=== PATIENT | female | born 1930 | race Caucasian/White ===

== ENCOUNTER → 2018-01-26 | Outpatient (CLI) | payer MEDICARE ==
--- NOTE | 2018-01-26 10:52 | MM ---
Reason for exam: clinical finding. Last mammogram was performed 6 years ago. History: Patient is postmenopausal and has history of colon cancer at age 61. Physical Findings: Nurse Summary: 2cm nodule in the right breast at 1 o'clock (nurse graciela). MG 3D Diag Mammo W/Cad MESSI Bilateral CC and MLO view(s) were taken. Prior study comparison: January 16, 2012, bilateral digital screening mammo w/CAD. January 13, 2011, bilateral digital screening mammo w/CAD. There are scattered fibroglandular densities. Nodular density at site of clinical concern right upper breast. Ultrasound is recommended. These results were verbally communicated with the patient and result sheet given to the patient on 01/26/18. ASSESSMENT: Incomplete: need additional imaging evaluation, BI-RAD 0 RECOMMENDATION: Ultrasound of the right breast.
--- NOTE | 2018-01-26 10:54 | USB ---
Reason for exam: additional evaluation requested from abnormal screening. History: Patient is postmenopausal and has history of colon cancer at age 61. US Breast Limited RT Right breast ultrasound demonstrates a 0.8 x 0.5 x 0.8cm oval, hypoechoic, vascular lesion at 1 o'clock. These results were verbally communicated with the patient and result sheet given to the patient on 01/26/18. ASSESSMENT: Suspicious, BI-RAD 4 RECOMMENDATION: Ultrasound core biopsy of the right breast. Called Dr. Knox with mammographic findings and has scheduled an appointment for the patient for 02/22/18 at 10:30with Dr. Ann. Biopsy scheduled for 02/05/18 at 2:00. PRELIMINARY REPORT CALLED AND FAXED TO DR. ANN ON 01/26/18.
== END | disposition home or self-care (01) ==
LOC: RADMAMWWP 08:48
PROVIDERS: ATTEND Internal Medicine Hematology & Oncology
DX: N63.11 Unspecified lump in the right breast, upper outer quadrant (principal); R92.8 Other abnormal and inconclusive findings on diagnostic imaging of breast
CPT/HCPCS: 77066; 76642; G0279

== ENCOUNTER → 2018-02-05 | Day surgery (SDC) | payer MEDICARE ==
[2018-02-05 13:04] VITALS: RESP 16; BMI 32.1
--- NOTE | 2018-02-05 14:52 | USB ---
EXAMINATION TYPE: US biopsy breast VAD RT DATE OF EXAM: 02/05/2018 CLINICAL HISTORY: Abnormal mammogram R92.8. Right breast mass for which biopsy was recommended at the 1:00 position. TECHNIQUE: Ultrasound guided core biopsy of the right breast. COMPARISON: 01/26/2018 FINDINGS: The procedure of ultrasound guided core biopsy was explained to the patient. Benefits, alternatives, and risks were discussed. An informed consent was then obtained. Preprocedural timeout was performed. The patient was placed in supine positioning for imaging and for the procedure. The overlying skin was prepped and draped in usual sterile fashion. Lidocaine buffered with bicarbonate was used as anesthetic into the skin and subcutaneous tissue up to the mass at the 1:00 position within the right breast. A abraham was made with surgical scalpel. Under ultrasound guidance, an 18-gauge spinal needle was used to attempt at aspiration in consideration that this could represent an epidermal inclusion cyst, however no fluid was withdrawn. The patient also notes recent antibiotic treatment. Subsequently a 12-gauge vacuum assisted biopsy gun device was used to obtain 5 core samples. Following this, a biopsy clip was left in lesion and was well visualized sonographically within the mass. The patient tolerated the procedure well without any immediate complication. The patient was kept in the radiology department for short stay after the procedure and then discharged home in stable condition. IMPRESSION: Successful, uncomplicated ultrasound guided core biopsy of an 8 mm mass at the 1:00 position within the right breast, full pathology results to follow. Pathology Results: Benign BREAST, RIGHT, 1:00, CORE BIOPSY: BENIGN LYMPH NODE WITH REACTIVE CHANGES AND PARTIAL FAT REPLACEMENT. SEE NOTE. Recommendation Follow up ultrasound of the right breast in 6 months. KHOI
[2018-02-05 14:55] VITALS: BP 167/76; PULSE 72; TEMP 97.5
== END | disposition home or self-care (01) ==
LOC: RADUSWWP 12:45
PROVIDERS: ATTEND Surgery
DX: N63.10 Unspecified lump in the right breast, unspecified quadrant (principal); R92.8 Other abnormal and inconclusive findings on diagnostic imaging of breast; Z88.0 Allergy status to penicillin; Z88.2 Allergy status to sulfonamides; Z88.1 Allergy status to other antibiotic agents
CPT/HCPCS: 88305; 88342; 88341; 19083; A4648; J2001

== ENCOUNTER 2018-04-27 11:22 | Inpatient (IN) | payer MEDICARE ==
--- NOTE | 2018-04-27 11:57 | ED ---
Dizziness HPI - General Chief Complaint: Dizziness Stated Complaint: Dizzy/high blood pressure Time Seen by Provider: 04/27/18 11:40 Source: patient, family, RN notes reviewed Mode of arrival: wheelchair Limitations: no limitations - History of Present Illness Initial Comments: This is a 88-year-old female with no prior history of stroke she states she had the onset last evening of difficulty swallowing and trouble walking. She states she felt dizzy his slight frontal headache and feels fuzzy "". No focal weakness to her arms or legs she states her blood pressure was elevated 197/76. He denies any recent illnesses she does have sciatic nerve problems but does not relate this current problem with the sciatica. No other complaints no other modifying factors at this time. Per her family her speech seems to be normal the patient states she had some slight trouble with speech and was thinking about what she said before she would say it. MD Complaint: lightheadedness, difficulty walking - Related Data Home Medications Medication Instructions Recorded Confirmed Cholecalciferol [Vitamin D3] 1,000 unit PO DAILY 09/25/17 04/27/18 Ferrous Sulfate [Feosol] 325 mg PO Q48H 09/25/17 04/27/18 Losartan/Hydrochlorothiazide 1 tab PO DAILY 09/25/17 04/27/18 [Hyzaar 100-25 Tablet] Multivitamins, Thera [Multivitamin 1 tab PO Q48H 09/25/17 04/27/18 (formulary)] Homer-3 Fatty Acids [Homer-3] 1,000 mg PO DAILY 01/29/18 04/27/18 Cetirizine HCl [Zyrtec] 10 mg PO DAILY 04/27/18 04/27/18 Allergies Allergy/AdvReac Type Severity Reaction Status Date / Time clarithromycin [From Biaxin] Allergy Rash/Hives Verified 04/27/18 12:11 Penicillins Allergy Unknown Verified 04/27/18 12:11 Sulfa (Sulfonamide Allergy ringing in Verified 04/27/18 12:11 Antibiotics) ears Review of Systems ROS Statement: Those systems with pertinent positive or pertinent negative responses have been documented in the HPI. ROS Other: All systems not noted in ROS Statement are negative. Past Medical History Past Medical History: Cancer, Hypertension Additional Past Medical History / Comment(s): anemia, hx colon cancer, lymphedema right arm History of Any Multi-Drug Resistant Organisms: None Reported Past Surgical History: Bowel Resection, Joint Replacement Additional Past Surgical History / Comment(s): joellen knee replacements, joellen cataract with lens implants Past Anesthesia/Blood Transfusion Reactions: No Reported Reaction Past Psychological History: No Psychological Hx Reported Smoking Status: Never smoker Past Alcohol Use History: None Reported Past Drug Use History: None Reported - Past Family History Mother Family Medical History: Cancer Additional Family Medical History / Comment(s): colon General Exam - General Exam Comments Initial Comments: This is a well-developed well-nourished awake alert oriented 3 female Limitations: no limitations General appearance: alert, in no apparent distress Head exam: Present: atraumatic, normocephalic, normal inspection Eye exam: Present: normal appearance, PERRL, EOMI. Absent: scleral icterus, conjunctival injection, periorbital swelling ENT exam: Present: mucous membranes dry Neck exam: Present: normal inspection. Absent: tenderness, meningismus, lymphadenopathy Respiratory exam: Present: normal lung sounds bilaterally. Absent: respiratory distress, wheezes, rales, rhonchi, stridor Cardiovascular Exam: Present: regular rate, normal rhythm, normal heart sounds. Absent: systolic murmur, diastolic murmur, rubs, gallop, clicks GI/Abdominal exam: Present: soft, normal bowel sounds. Absent: distended, tenderness, guarding, rebound, rigid Extremities exam: Present: normal inspection, full ROM, normal capillary refill. Absent: tenderness, pedal edema, joint swelling, calf tenderness Back exam: Present: normal inspection Neurological exam: Present: alert, oriented X3, CN II-XII intact Psychiatric exam: Present: normal affect, normal mood Skin exam: Present: warm, dry, intact, normal color. Absent: rash Course Vital Signs 04/27/18 04/27/18 11:31 14:34 Temperature 98.4 F Pulse Rate 75 78 Respiratory 18 18 Rate Blood Pressure 193/78 185/81 O2 Sat by Pulse 99 98 Oximetry - Reevaluation(s) Reevaluation #1: 04/27/18 15:12 Reevaluation patient reveals no change in her status she still is difficulty swallowing was able ambulate however. No focal deficits. EKG Findings - EKG Results: EKG: interpreted by REUBEN, sinus rhythm (Sinus rhythm of 62 NJ interval 150 QRS 138 QT since QTC 442/448 red bundle-branch block pattern possible lateral infarct of indeterminate age.) Medical Decision Making - Medical Decision Making I did discuss findings with the patient family and with Dr. Collins patient will be admitted with ENT and neurology evaluation. - Lab Data Result diagrams: 04/27/18 12:06 04/27/18 12:06 Lab Results 04/27/18 04/27/18 04/27/18 Range/Units 12:06 12:06 12:06 WBC 6.5 (3.8-10.6) k/uL RBC 4.21 (3.80-5.40) m/uL Hgb 12.5 (11.4-16.0) gm/dL Hct 36.9 (34.0-46.0) % MCV 87.7 (80.0-100.0) fL MCH 29.7 (25.0-35.0) pg MCHC 33.9 (31.0-37.0) g/dL RDW 12.7 (11.5-15.5) % Plt Count 317 (150-450) k/uL Neutrophils % 70 % Lymphocytes % 18 % Monocytes % 7 % Eosinophils % 3 % Basophils % 0 % Neutrophils # 4.5 (1.3-7.7) k/uL Lymphocytes # 1.1 (1.0-4.8) k/uL Monocytes # 0.4 (0-1.0) k/uL Eosinophils # 0.2 (0-0.7) k/uL Basophils # 0.0 (0-0.2) k/uL D-Dimer (<0.60) mg/L FEU Sodium 142 (137-145) mmol/L Potassium 4.5 (3.5-5.1) mmol/L Chloride 106 (98-107) mmol/L Carbon Dioxide 25 (22-30) mmol/L Anion Gap 11 mmol/L BUN 25 H (7-17) mg/dL Creatinine 0.90 (0.52-1.04) mg/dL Est GFR (CKD-EPI)AfAm 67 (>60 ml/min/1.73 sqM) Est GFR (CKD-EPI)NonAf 58 (>60 ml/min/1.73 sqM) Glucose 93 (74-99) mg/dL Calcium 9.5 (8.4-10.2) mg/dL Magnesium 2.2 (1.6-2.3) mg/dL Total Bilirubin 0.3 (0.2-1.3) mg/dL AST 18 (14-36) U/L ALT 19 (9-52) U/L Alkaline Phosphatase 90 (38-126) U/L Total Creatine Kinase 43 (30-135) U/L CK-MB (CK-2) 1.0 (0.0-2.4) ng/mL CK-MB (CK-2) Rel Index 2.3 Troponin I <0.012 (0.000-0.034) ng/mL Total Protein 7.5 (6.3-8.2) g/dL Albumin 4.0 (3.5-5.0) g/dL Urine Color Urine Appearance (Clear) Urine pH (5.0-8.0) Ur Specific [place] (1.001-1.035) Urine Protein (Negative) Urine Glucose (UA) (Negative) Urine Ketones (Negative) Urine Blood (Negative) Urine Nitrite (Negative) Urine Bilirubin (Negative) Urine Urobilinogen (<2.0) mg/dL Ur Leukocyte Esterase (Negative) 04/27/18 04/27/18 Range/Units 12:06 14:36 WBC (3.8-10.6) k/uL RBC (3.80-5.40) m/uL Hgb (11.4-16.0) gm/dL Hct (34.0-46.0) % MCV (80.0-100.0) fL MCH (25.0-35.0) pg MCHC (31.0-37.0) g/dL RDW (11.5-15.5) % Plt Count (150-450) k/uL Neutrophils % % Lymphocytes % % Monocytes % % Eosinophils % % Basophils % % Neutrophils # (1.3-7.7) k/uL Lymphocytes # (1.0-4.8) k/uL Monocytes # (0-1.0) k/uL Eosinophils # (0-0.7) k/uL Basophils # (0-0.2) k/uL D-Dimer 0.65 H (<0.60) mg/L FEU Sodium (137-145) mmol/L Potassium (3.5-5.1) mmol/L Chloride (98-107) mmol/L Carbon Dioxide (22-30) mmol/L Anion Gap mmol/L BUN (7-17) mg/dL Creatinine (0.52-1.04) mg/dL Est GFR (CKD-EPI)AfAm (>60 ml/min/1.73 sqM) Est GFR (CKD-EPI)NonAf (>60 ml/min/1.73 sqM) Glucose (74-99) mg/dL Calcium (8.4-10.2) mg/dL Magnesium (1.6-2.3) mg/dL Total Bilirubin (0.2-1.3) mg/dL AST (14-36) U/L ALT (9-52) U/L Alkaline Phosphatase (38-126) U/L Total Creatine Kinase (30-135) U/L CK-MB (CK-2) (0.0-2.4) ng/mL CK-MB (CK-2) Rel Index Troponin I (0.000-0.034) ng/mL Total Protein (6.3-8.2) g/dL Albumin (3.5-5.0) g/dL Urine Color Colorless Urine Appearance Clear (Clear) Urine pH 7.5 (5.0-8.0) Ur Specific [place] 1.006 (1.001-1.035) Urine Protein Negative (Negative) Urine Glucose (UA) Negative (Negative) Urine Ketones Negative (Negative) Urine Blood Negative (Negative) Urine Nitrite Negative (Negative) Urine Bilirubin Negative (Negative) Urine Urobilinogen <2.0 (<2.0) mg/dL Ur Leukocyte Esterase Negative (Negative) - Radiology Data Radiology results: report reviewed (I did review the imaging and reports no acute findings.), image reviewed Critical Care Time Critical Care Time: Yes Critical Care Time: 31 minutes of critical care time which includes initial presentation with history physical labs x-rays several reevaluation of the patient. Discussed with the patient family regarding findings review of old charting that was available. Discussed with the beta physician admission orders and documentation of the above Disposition Clinical Impression: CVA (cerebral vascular accident) Disposition: ADMITTED IP TO THIS [facility] Condition: Stable Referrals: Russ Rowe MD [Primary Care Provider] - 1-2 days
[2018-04-27 12:49] LABS: Basophils % (A) 0 %; Eosinophils # (A) 0.2 k/uL (0-0.7); Eosinophils % (A) 3 %; HCT 36.9 % (34.0-46.0); HGB 12.5 gm/dL (11.4-16.0); Lymphocytes # (A) 1.1 k/uL (1.0-4.8); Lymphocytes % (A) 18 %; MCH 29.7 pg (25.0-35.0); MCHC 33.9 g/dL (31.0-37.0); MCV 87.7 fL (80.0-100.0); Monocytes # (A) 0.4 k/uL (0-1.0); Monocytes % (A) 7 %; Neutrophils # (A) 4.5 k/uL (1.3-7.7); Neutrophils % (A) 70 %; Platelet Count 317 k/uL (150-450); RBC 4.21 m/uL (3.80-5.40); RDW 12.7 % (11.5-15.5); WBC 6.5 k/uL (3.8-10.6)
[2018-04-27 13:11] LABS: Calcium 9.5 mg/dL (8.4-10.2); Creatine Kinase 43 U/L (30-135); Magnesium 2.2 mg/dL (1.6-2.3); Total Bilirubin 0.3 mg/dL (0.2-1.3); Total Protein 7.5 g/dL (6.3-8.2)
[2018-04-27 13:13] LABS: Potassium 4.5 mmol/L (3.5-5.1)
--- NOTE | 2018-04-27 13:14 | CT ---
EXAMINATION TYPE: CT brain wo con DATE OF EXAM: 04/27/2018 COMPARISON: HISTORY: Dizzy, elevated blood pressure CT DLP: [address] of the brain was performed. The ventricles, basal cisterns and sulci overlying the cerebral convexities demonstrate mild enlargem ent. There is no evidence for intracranial hemorrhage or sulcal effacement. There is decreased attenuation about the periventricular white matter and deep white matter of both c erebral hemispheres, compatible with chronic small vessel ischemia. Differential diagnosis does inclu de demyelination. No mass effects are seen.No midline shift. Osseous calvarium is intact. If symptoms persist consider MRI. IMPRESSION: 1. Age related atrophic and chronic small vessel ischemic change without acute intracranial process s een at this time.
--- NOTE | 2018-04-27 13:16 | XR ---
EXAMINATION TYPE: XR chest 2V DATE OF EXAM: 04/27/2018 COMPARISON: 07/02/2014 HISTORY: Shortness of breath TECHNIQUE: Frontal and lateral views of the chest are obtained. FINDINGS: Scattered senescent parenchymal changes noted. Hyperinflation compatible with COPD. No evidence for infiltrate. No evidence for atelectasis. Heart size is stable. Mediastinal structures are stable and grossly unremarkable. No evidence for hilar prominence. Degenerative changes dorsal spine. IMPRESSION: 1. No evidence for acute pulmonary disease.
[2018-04-27 13:23] LABS: Troponin I <0.012 ng/mL (0.000-0.034)
[2018-04-27] MEDS ORDERED: SODIUM CHLORIDE 0.9% 500 ML IV STA ×2 (14:45→16:31)
[2018-04-27 14:53] LABS: Appearance,Urine Clear (Clear); Bilirubin,Urine Negative (Negative); Blood,Urine Negative (Negative); Color,Urine Colorless; Glucose,Urine (UA) Negative (Negative); Ketones,Urine Negative (Negative); Leukocyte Esterase,Urine Negative (Negative); Nitrite,Urine Negative (Negative); PH, Urine 7.5 (5.0-8.0); Protein,Urine Negative (Negative); Specific Gravity,Urine 1.006 (1.001-1.035); Urobilinogen,Urine <2.0 mg/dL (<2.0)
[2018-04-27] MEDS ORDERED: SODIUM CHLORIDE 0.9% 1,000 ML IV SCH (15:15)
[2018-04-27] MEDS ORDERED: cloNIDine HCL 0.1 MG TAB PO STA (15:23)
[2018-04-27] MEDS: ASPIRIN 325 MG TAB PO STA ×2 (15:27→15:28)
[2018-04-27 18:47] VITALS: BMI 31.7
--- NOTE | 2018-04-27 20:06 | P.CNNES ---
History of Present Illness Consult date: 04/27/18 Reason for Consult: Patient with altered mental status and dizziness. History of Present Illness: This patient is a 88-year-old right-handed white female who apparently yesterday evening noticed that she was having some difficulty with her sense of balance. She states that she is feeling "woozy" which meant she was just not feeling well. She also noted yesterday evening that she was having difficulty with her swallowing mechanism as when she tried to drink of fluid it was causing her to cough and gag. She decided to wait until this morning to see if her symptoms would improve. This morning she was still having trouble with her swallowing mechanism stating that it was hard for her to drink liquids. Later on in the day she was able to have some toast which apparently did not cause trouble. She still continued to have symptoms of dizziness. She describes it as a feeling of imbalance. She did not have any true vertigo symptoms at the time. She was also feeling that she was having trouble walking but attributed much of this to her known history of sciatica in the past. The patient decided to come to the emergency room today for further evaluation. She was seen in the ER by Dr. Saldana. Her initial blood pressure reading in the ER was 193/78 which was quite elevated and she was treated for this. The patient was reevaluated in the ER by Dr. Saldana and she still had difficulty with swallowing. She was admitted to hospital for further evaluation. ENT consultation is pending. Patient denies any previous history of TIA or stroke. She does have history of underlying colon cancer which was diagnosed in 1990. She underwent resection with chemotherapy. She has yearly colonoscopy procedures. She also has a history of bilateral knee surgeries in 2009. She states she had been ambulating well but this new weakness came on suddenly. The patient did undergo a computed tomography scan of the brain in the ER which revealed age related atrophy and chronic small vessel ischemic changes. No acute intracranial abnormality was detected. We reviewed the CAT scan results today with the patient. We'll recommend patient undergo MRI of the brain to rule out any brainstem ischemia. We will need to wait to see how she her ENT evaluation turns out in terms of her swallowing difficulties. She does have a gag reflex and does seem to do well with liquids and soft foods at this time without showing signs of gagging. She may require speech therapy consultation as well. The patient is unable to take aspirin as she has a high bleeding tendency. She is now been admitted and neurology has been consulted for further evaluation and recommendations. Review of Systems Constitutional: Denies chills, Denies fever Eyes: denies blurred vision, denies pain Ears, nose, mouth and throat: Denies headache, Denies sore throat Cardiovascular: Denies chest pain, Denies shortness of breath Respiratory: Denies cough Gastrointestinal: Denies abdominal pain, Denies diarrhea, Denies nausea, Denies vomiting Genitourinary: Denies dysuria, Denies hematuria Musculoskeletal: Denies myalgias Integumentary: Denies pruritus, Denies rash Neurological: Reports change in mentation, Reports confusion, Reports gait dysfunction, Reports motor disturbance, Denies numbness, Denies weakness Psychiatric: Denies anxiety, Denies depression Endocrine: Denies fatigue, Denies weight change Past Medical History Past Medical History: Cancer, Hypertension Additional Past Medical History / Comment(s): anemia, hx colon cancer, lymphedema right arm History of Any Multi-Drug Resistant Organisms: None Reported Past Surgical History: Bowel Resection, Joint Replacement Additional Past Surgical History / Comment(s): joellen knee replacements, joellen cataract with lens implants Past Anesthesia/Blood Transfusion Reactions: No Reported Reaction Past Psychological History: No Psychological Hx Reported Smoking Status: Never smoker Past Alcohol Use History: None Reported Past Drug Use History: None Reported - Past Family History Mother Family Medical History: Cancer Additional Family Medical History / Comment(s): colon Medications and Allergies Home Medications Medication Instructions Recorded Confirmed Type Cholecalciferol [Vitamin D3] 1,000 unit PO DAILY 09/25/17 04/27/18 History Ferrous Sulfate [Feosol] 325 mg PO Q48H 09/25/17 04/27/18 History Losartan/Hydrochlorothiazide 1 tab PO DAILY 09/25/17 04/27/18 History [Hyzaar 100-25 Tablet] Multivitamins, Thera [Multivitamin 1 tab PO Q48H 09/25/17 04/27/18 History (formulary)] Chemult-3 Fatty Acids [Chemult-3] 1,000 mg PO DAILY 01/29/18 04/27/18 History Cetirizine HCl [Zyrtec] 10 mg PO DAILY 04/27/18 04/27/18 History Allergies Allergy/AdvReac Type Severity Reaction Status Date / Time clarithromycin [From Biaxin] Allergy Rash/Hives Verified 04/27/18 12:11 Penicillins Allergy Unknown Verified 04/27/18 12:11 Sulfa (Sulfonamide Allergy ringing in Verified 04/27/18 12:11 Antibiotics) ears Physical Examination - Vital Signs Vital Signs: Vital Signs Temp Pulse Pulse Resp BP BP Pulse Ox 04/27/18 17:52 97.3 F L 56 L 18 184/73 97 04/27/18 16:15 73 18 184/72 97 04/27/18 16:10 71 16 192/79 98 04/27/18 15:32 78 18 199/76 97 04/27/18 14:34 78 18 185/81 98 04/27/18 11:31 98.4 F 75 18 193/78 99 Intake and Output 04/27/18 04/27/18 04/27/18 06:59 14:59 22:59 Other: Weight 78.653 kg - Constitutional General appearance: average body habitus, cooperative - EENT EENT: PERRL, mucous membranes moist - Respiratory Respiratory: lungs clear, normal breath sounds - Cardiovascular Cardiovascular: regular rate, normal S1, normal S2 Extremities: no peripheral edema bilaterally - Gastrointestinal Gastrointestinal: normoactive bowel sounds - Integumentary Integumentary: normal - Neurologic Cranial nerve examination: PERRL, EOMI, VFF, face symmetric, intact gag reflex, intact corneal reflex, normal palatal elevation Speech examination: intact Sensorimotor examination: intact Motor examination - right side: 4/5: biceps, triceps, wrist flexion, wrist extension, table lever operator, hip flexors, knee extensors, dorsiflexion, toe extension (EHL) , plantarflexion Motor examination - left side: 4/5: biceps, triceps, wrist flexion, wrist extension, table lever operator, hip flexors, knee extensors, dorsiflexion, toe extension (EHL) , plantarflexion Detailed sensory examination: intact Reflex and gait examination: intact Reflexes: 1+: ankle, bicep, knee, tricep - Musculoskeletal Musculoskeletal: no pain - Psychiatric Psychiatric: mood/affect appropriate, cooperative Results - Laboratory Findings CBC and BMP: 04/27/18 12:06 04/27/18 12:06 Abnormal Lab Findings: Abnormal Labs 04/27/18 04/27/18 12:06 12:06 D-Dimer 0.65 H BUN 25 H Assessment and Plan (1) Transient brainstem ischemia Current Visit: Yes Status: Acute Code(s): G45.8 - OTH TRANSIENT CEREBRAL ISCHEMIC ATTACKS AND RELATED SYND SNOMED Code(s): 48119015 (2) Dysphagia Current Visit: Yes Status: Acute Code(s): R13.10 - DYSPHAGIA, UNSPECIFIED SNOMED Code(s): 97507800 (3) Dizziness Current Visit: Yes Status: Acute Code(s): R42 - DIZZINESS AND GIDDINESS SNOMED Code(s): 701682117 (4) History of colon cancer Current Visit: Yes Status: Acute Code(s): Z85.038 - PERSONAL HISTORY OF MALIGNANT NEOPLASM OF LARGE INTESTINE SNOMED Code(s): 907852679 Plan: This patient is a pleasant 88-year-old right-handed white female who was admitted hospital today with symptoms of difficulty swallowing as well as trouble ambulating at home. Symptoms did not improve this morning on awakening and she decided to come to the emergency room. In the ER she was evaluated by Dr. Saldana. She had evidence of hypertensive urgency. She was sent for computed tomography scan of the brain results which are noted above. She was subsequently admitted to hospital for further evaluation. The patient denies any previous history of TIA or stroke. She did have clear evidence of dysphagia yesterday and this morning which apparently has improved since admission to the hospital. She is to be evaluated by ENT with consultation. Her neurological examination at this time is nonfocal. We have recommended she undergo an MRI of the brain for further evaluation of brainstem ischemia given her swallowing difficulties. She is unable to take aspirin as she has bleeding tendency. We will obtain a full stroke workup for the patient during this admission. Her overall prognosis at this time remains very guarded. Time with Patient: Greater than 30
[2018-04-27] MEDS ORDERED: CALCIUM CARBONATE 500 MG CHEWABLE PO PRN (21:06)
[2018-04-27] MEDS ORDERED: MELATONIN 3 MG TABLET PO PRN (21:06)
[2018-04-27] MEDS ORDERED: ONDANSETRON 4 MG/2 ML VIAL IVP PRN (21:06)
[2018-04-27] MEDS ORDERED: LACTULOSE 20 GM/30 ML CUP PO PRN (21:06)
[2018-04-27] MEDS ORDERED: MAGNESIUM HYDROXIDE 2,400 MG/10 ML CUP PO PRN (21:06)
[2018-04-27] MEDS ORDERED: LORazepam 0.5 MG TAB PO PRN (21:06)
[2018-04-28 06:50] LABS: Cholesterol 218 mg/dL (<200); HDL Cholesterol 68 mg/dL (40-60); LDL Cholesterol,Calculated 131 mg/dL (0-99); Triglycerides 97 mg/dL (<150)
[2018-04-28] MEDS ORDERED: NON-FORMULARY DRUG (Omega-3 Fatty Acids [Omega-3] 1,000 MG) PO SCH (09:00)
[2018-04-28] MEDS ORDERED: LORATADINE 10 MG TAB PO SCH (09:00)
--- NOTE | 2018-04-28 09:27 | US ---
EXAMINATION TYPE: US carotid duplex BILAT DATE OF EXAM: 04/28/2018 COMPARISON: NONE CLINICAL HISTORY: Patient with TIA and swallowing problems.. EXAM MEASUREMENTS: RIGHT: Peak Systolic Velocity (PSV) cm/sec ----- Right CCA: 102.3 ----- Right ICA: 145.37 ----- Right ECA: 80.9 ICA/CCA ratio: 1.4 RIGHT: End Diastole cm/sec ----- Right CCA: 11.6 ----- Right ICA: 27.4 ----- Right ECA: 0.0 LEFT: Peak Systolic Velocity (PSV) cm/sec ----- Left CCA: 92.0 ----- Left ICA: 95.1 ----- Left ECA: 98.4 ICA/CCA ratio: 1.0 LEFT: End Diastole cm/sec ----- Left CCA: 12.7 ----- Left ICA: 20.8 ----- Left ECA: 0.0 VERTEBRALS (direction of flow): Right Vertebral: Antegrade Left Vertebral: Antegrade 50-69% by diameter stenosis of the proximal right ICA. 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 Criteria for Assigning % of Stenosis / Diameter reduction (Estimation based on the indirect measurements of the internal carotid artery velocities (ICA PSV). 1. Normal (no stenosis)=ICA PSV < 125 cm/s: ratio < 2.0: ICA EDV<40 cm/s. 2. Less than 50% stenosis=ICA PSV < 125 cm/s: ratio < 2.0: ICA EDV<40 cm/s. 3. 50 to 69% stenosis=ICA PSV of 125 to 230 cm/s: ration 2.0 ? 4.0: ICA EDV 40-100 cm/s. 4. Greater than 70% stenosis to near occlusion= ICA PSV > 230 cm/s: ratio > 4.0: ICA EDV > 100 cm/s. 5. Near occlusion= ICA PSV velocities may be low or undetectable: variable ratio and ICA EDV. 6. Total occlusion=unable to detect flow.
[2018-04-28] MEDS: ASPIRIN 325 MG TAB PO SCH (09:46)
[2018-04-28] MEDS: CHOLECALCIFEROL 1,000 UNIT TAB PO SCH (09:46)
[2018-04-28] MEDS: FERROUS SULFATE 325 MG TAB PO SCH (09:46)
--- NOTE | 2018-04-28 15:02 | HP ---
HISTORY AND PHYSICAL DATE OF ADMISSION: 04/27/2018 DATE OF SERVICE: 04/28/2018 PRESENTING COMPLAINT: Difficulty walking. HISTORY OF PRESENTING COMPLAINT: This is a very pleasant 88-year-old patient of Dr. Rowe. Chronic stable medical conditions include hypertension, urinary incontinence and chronic lymphedema of the right arm. Lymphedema has been worked up by Dr. Knox. No cause has been found. Two nights ago the patient felt what she described as feeling woozy, just did not feel well. She went to bed. The next morning she felt the same way. Her blood pressure was up to 197 systolic. She noticed that her speech was a bit slow and she had to stop and think to bring her words out. She also noticed weakness in the legs, especially in the left leg, some trouble swallowing, and she decided to come into the ER. Initial CT scan of the brain did not show any acute event. Patient was admitted with a stroke/TIA workup. Patient has had knees replaced. Hence it is unclear at this point if patient can actually have an MRI. She is pending the same. Patient does feel a bit better, pretty close to her baseline. Patient's family is present at the bedside. No prior history of stroke. No change in her vision. Swallowing has actually improved. She thinks her speech actually has also improved. Patient at her baseline is a bit unsteady on her feet. REVIEW OF SYSTEMS: CONSTITUTIONAL: None. HEENT: As above. RESPIRATORY: None. CARDIOVASCULAR: None. GASTROINTESTINAL: None. GENITOURINARY: Incontinence. DERMATOLOGICAL: None. HEMATOLOGICAL: None. LYMPHATICS: None. PSYCHIATRY: None. NEUROLOGICAL: As above. PAST MEDICAL HISTORY: 1. Hypertension. 2. Anemia. 3. Colon cancer treated with radiation treatment. 4. Chronic right arm lymphedema, cause unknown. PAST SURGICAL HISTORY: 1. Bowel resection. 2. Bilateral knee replacement. 3. Bilateral cataract with lens. SOCIAL HISTORY: Does not smoke or drink alcohol. Lives by herself. Family lives close by. FAMILY HISTORY: Colon cancer. HOME MEDICATIONS: 1. Hawthorne-3 1000 mg p.o. daily. 2. Multivitamin 1 tablet q.48 hours. 3. Hyzaar 100/25 one tablet p.o. daily. 4. Iron 325 p.o. q.48 hours. 5. Vitamin D3 1000 units p.o. daily. 6. Zyrtec 10 mg p.o. daily. ALLERGIES: 1. CLARITHROMYCIN. 2. PENICILLIN. 3. SULFA. PHYSICAL EXAMINATION: VITAL SIGNS ON PRESENTATION: Temperature 98.4, pulse 75, respiration 18, blood pressure 193/78, pulse ox 99% on room air. GENERAL APPEARANCE: Well built; BMI 31.8. Sitting up. Comfortable. EYES: Pupils equal. Conjunctivae normal. HEENT: External appearance of nose and ears normal. Oral cavity normal. NECK: JVD not raised. Mass not palpable. RESPIRATORY: Effort normal. Lungs are clear. CARDIOVASCULAR: First and second sounds normal. No edema. ABDOMEN: Soft, non-tender. Liver and spleen not palpable. LYMPHATIC: No lymph node palpable in neck or axillae. PSYCHIATRY: Alert and oriented x3. Mood and affect normal. NEUROLOGICAL: Pupils equal. No facial asymmetry. Power and sensation grossly intact. INVESTIGATIONS: White count 6.5, hemoglobin 12.5, potassium 4.5, BUN 25, creatinine 0.90, LDL 131. UA negative. CT scan of the brain shows chronic changes. Chest x-ray film interpreted by me shows some cardiomegaly; lung smith otherwise clear. EKG tracing interpreted by me shows right bundle branch block. Carotid Doppler shows proximal right ICA 50% to 69%. ASSESSMENT: 1. This is a patient who presents with some change in swallowing and speech becoming slow, weak in the left leg, symptoms lasting for quite some time. This could be a TIA/acute stroke. Initial CT scan that can often be negative was unremarkable. Patient's symptoms have improved. Cannot do an MRI because of knee implant. 2. Obesity with body mass index of 31.3. 3. Hyperlipidemia, uncontrolled. LDL is 131. 4. Essential hypertension, accelerated. 5. Chronic lymphedema of the right arm, idiopathic. 6. Primary osteoarthritis, especially of the hands. PLAN: Neuro checks are in place. Will get an opinion from [facility] to see if patient can have an MRI. Will get a 2-D echocardiogram. Patient is on aspirin. Lipitor will be added. Care was discussed in detail with the patient and family. Questions were answered. Neurology consultation was done. MMODL / IJN: [id number] /
--- NOTE | 2018-04-28 16:47 | P.PN ---
Subjective Progress Note Date: 04/28/18 This patient is a 88-year-old female who was admitted just stay for symptoms of dizziness and dysphagia. The patient presented with new onset of symptoms and was initially seen in the emergency room for possibility of TIA versus stroke. She underwent a computed tomography scan of the brain which failed to reveal any acute changes. She was admitted to Hospital for further evaluation. Yesterday her neurological examination was showing significant improvement with her dysphagia. She is waiting to be seen in consultation by ENT for further evaluation. Given her history of dysphagia and dizziness it was recommended the patient undergo MRI of the brain. Apparently she told the nursing staff today that she would decline the MRI as she is undergone bilateral knee replacements. After checking with MRI this was not a contraindication for her MRI study for today however the patient has declined to have MRI brain done at this time. 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 Patient seems to be doing fairly well today. She denies any difficulty with her swallowing today. She is still awaiting ENT consultation. According to the nursing staff orthopedic surgery has been consulted for evaluation of her knee replacements and compatibility for MRI. We will continue to follow her progress closely during this admission. We have discussed all results with her thus far in detail and she does seem to be doing better today. She denies any further swallowing difficulties. She has been up and ambulating to the bathroom without any problem. We will continue close neurological follow-up for the patient during this admission. Objective - Vital Signs Vital signs: Vital Signs Temp 97.0 F L 04/28/18 08:00 Pulse 72 04/28/18 08:00 Resp 16 04/28/18 08:00 BP 156/75 04/28/18 08:00 Pulse Ox 96 04/28/18 09:01 Intake & Output 04/27/18 04/28/18 04/28/18 18:59 06:59 18:59 Intake Total 480 480 Balance 480 480 Weight 78.653 kg 77.6 kg Intake: Oral 480 480 Other: Voiding Method Toilet # Voids 0 1 - Exam Physical examination: PHYSICAL EXAMINATION: Patient is resting comfortably in bed. VITAL SIGNS: Blood pressure is [136/59]. Heart rate is [86]. Respiration is [18] . Temperature is [98.9]. HEENT: Head is atraumatic, neck is supple, there were no carotid bruits. CHEST: Lungs are clear to auscultation and percussion. CARDIAC: S1, S2 normal rate and rhythm. There is no murmur. ABDOMEN: Soft and nontender. Bowel sounds are present. EXTREMITIES: There is no pedal edema. Peripheral pulses are present. Neurological examination: Patient has a nonfocal neurological examination today. Patient denies any swallowing difficulties at this time and is been up and ambulating without vertigo or dizzy spells. - Labs CBC & Chem 7: 04/27/18 12:06 04/27/18 12:06 Labs: Abnormal Lab Results - Last 24 Hours (Table) 04/28/18 Range/Units 06:16 Cholesterol 218 H (<200) mg/dL LDL Cholesterol, Calc 131 H (0-99) mg/dL HDL Cholesterol 68 H (40-60) mg/dL Assessment and Plan (1) Transient brainstem ischemia Current Visit: Yes Status: Acute Code(s): G45.8 - OTH TRANSIENT CEREBRAL ISCHEMIC ATTACKS AND RELATED SYND SNOMED Code(s): 00528981 (2) Dysphagia Current Visit: Yes Status: Acute Code(s): R13.10 - DYSPHAGIA, UNSPECIFIED SNOMED Code(s): 60066419 (3) Dizziness Current Visit: Yes Status: Acute Code(s): R42 - DIZZINESS AND GIDDINESS SNOMED Code(s): 475134070 (4) History of colon cancer Current Visit: Yes Status: Acute Code(s): Z85.038 - PERSONAL HISTORY OF MALIGNANT NEOPLASM OF LARGE INTESTINE SNOMED Code(s): 484317769 Plan: This patient is a 88-year-old female who was admitted to hospital yesterday with symptoms of dizziness and swallowing difficulty. She seems to be doing much better today and has had no further episodes of gagging or difficulty with her swallow. She is taking liquids and solids quite easily. She underwent carotid Doppler ultrasound which reveals right ICA stenosis of 5069 percent. She is recommended to undergo MRI of the brain however there is concern regarding her knee replacements. MRIs on hold. She otherwise seems to be doing better overall and is been up and ambulating. Her clinical symptoms suggest possibility of brainstem ischemia producing dizziness and swallowing difficulty. If possible we will try to obtain her MRI if she is cleared regarding her knee replacements. Overall prognosis at this time remains guarded. We will continue to follow her progress closely during this admission.
[2018-04-28] MEDS: ATORVASTATIN 40 MG TAB PO SCH (19:51)
[2018-04-28] MEDS: LOSARTAN-HCTZ 50-12.5 MG 1 EACH TAB PO SCH (19:51)
[2018-04-29] MEDS: ASPIRIN 325 MG TAB PO SCH (08:31)
[2018-04-29] MEDS: LOSARTAN-HCTZ 50-12.5 MG 1 EACH TAB PO SCH ×2 (08:32→19:51)
[2018-04-29] MEDS: CHOLECALCIFEROL 1,000 UNIT TAB PO SCH (08:32)
[2018-04-29] MEDS ORDERED: LOSARTAN-HCTZ 50-12.5 MG 1 EACH TAB PO SCH (09:00)
[2018-04-29] MEDS ORDERED: MULTIVITAMINS, THERA 1 EACH TAB PO SCH (12:00)
[2018-04-29] MEDS: ATORVASTATIN 40 MG TAB PO SCH (19:51)
--- NOTE | 2018-04-29 23:18 | P.PN ---
Subjective Progress Note Date: 04/29/18 This patient is a 88-year-old female who was admitted just stay for symptoms of dizziness and dysphagia. The patient presented with new onset of symptoms and was initially seen in the emergency room for possibility of TIA versus stroke. She underwent a computed tomography scan of the brain which failed to reveal any acute changes. She was admitted to Hospital for further evaluation. Yesterday her neurological examination was showing significant improvement with her dysphagia. She is waiting to be seen in consultation by ENT for further evaluation. Given her history of dysphagia and dizziness it was recommended the patient undergo MRI of the brain. Apparently she told the nursing staff today that she would decline the MRI as she is undergone bilateral knee replacements. After checking with MRI this was not a contraindication for her MRI study for today however the patient has declined to have MRI brain done at this time. 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 Patient seems to be doing fairly well today. She denies any difficulty with her swallowing today. She is still awaiting ENT consultation. According to the nursing staff orthopedic surgery has been consulted for evaluation of her knee replacements and compatibility for MRI. We will continue to follow her progress closely during this admission. We have discussed all results with her thus far in detail and she does seem to be doing better today. According to the patient she has been given okay to proceed with MRI of the brain. This is been scheduled for her to be done tomorrow. She will also have her EEG done tomorrow and this will be reviewed. She denies any further swallowing difficulties. She has been up and ambulating to the bathroom without any problem. We will continue close neurological follow-up for the patient during this admission. Objective - Vital Signs Vital signs: Vital Signs Temp 97.4 F L 04/29/18 12:00 Pulse 80 04/29/18 12:00 Resp 18 04/29/18 12:00 BP 177/91 04/29/18 12:00 Pulse Ox 99 04/29/18 12:00 Intake & Output 04/28/18 04/29/18 04/29/18 18:59 06:59 18:59 Intake Total 960 480 480 Balance 960 480 480 Weight 78.4 kg Intake: Oral 960 480 480 Other: Voiding Method Toilet # Voids 2 0 1 - Exam Physical examination: PHYSICAL EXAMINATION: Patient is resting comfortably in bed. VITAL SIGNS: Blood pressure is [159/74]. Heart rate is [72]. Respiration is [16] . Temperature is [97.8]. HEENT: Head is atraumatic, neck is supple, there were no carotid bruits. CHEST: Lungs are clear to auscultation and percussion. CARDIAC: S1, S2 normal rate and rhythm. There is no murmur. ABDOMEN: Soft and nontender. Bowel sounds are present. EXTREMITIES: There is no pedal edema. Peripheral pulses are present. Neurological examination: Patient has a nonfocal neurological examination today. Patient denies any swallowing difficulties at this time and is been up and ambulating without vertigo or dizzy spells. Patient denies any swallowing difficulties today. - Labs CBC & Chem 7: 04/27/18 12:06 04/27/18 12:06 Assessment and Plan (1) Transient brainstem ischemia Current Visit: Yes Status: Acute Code(s): G45.8 - OTH TRANSIENT CEREBRAL ISCHEMIC ATTACKS AND RELATED SYND SNOMED Code(s): 04978092 (2) Dysphagia Current Visit: Yes Status: Acute Code(s): R13.10 - DYSPHAGIA, UNSPECIFIED SNOMED Code(s): 31312993 (3) Dizziness Current Visit: Yes Status: Acute Code(s): R42 - DIZZINESS AND GIDDINESS SNOMED Code(s): 415544180 (4) History of colon cancer Current Visit: Yes Status: Acute Code(s): Z85.038 - PERSONAL HISTORY OF MALIGNANT NEOPLASM OF LARGE INTESTINE SNOMED Code(s): 890616559 Plan: This patient is a 88-year-old female being evaluated for possibility of TIA versus stroke. She has been given clearance to proceed with MRI of the brain which is been ordered for tomorrow. She is also awaiting further evaluation from ENT regarding swallowing difficulties. In fact she is actually shown improvement with her swallowing and has not had trouble eating her meals today. We will await further recommendations from ENT. She is to have EEG tomorrow and this will be reviewed. Her carotid Doppler study came back with 5069 percent stenosis of the right ICA. We reviewed all test results today with the patient. Her neurological examination remains nonfocal. We will continue close neurological follow-up for the patient during this admission.
--- NOTE | 2018-04-30 08:17 | MR ---
MR brain without contrast HISTORY: Dizziness and dysphagia Multiplanar multisequence imaging obtained through the brain. Correlation to CT brain 04/27/2018 Restricted diffusion is present within the filiberto to the right of midline. There is corresponding hyper intensity on inversion recovery and T2-weighted sequences. Cortical atrophy is noted. Scattered and c onfluent hyperintensities are present in the periventricular, subcortical and deep white matter. No h emorrhage or hydrocephalus. There are normal vascular flow voids. Orbits show symmetric appearance. C orpus callosum, cervical medullary junction, cerebellopontine angles are unremarkable. Paranasal sinu ses are well aerated. There is a partially empty sella. IMPRESSION: Filiberto subacute infarct. Chronic small vessel ischemic changes and age-related atrophy.
[2018-04-30] MEDS: CHOLECALCIFEROL 1,000 UNIT TAB PO SCH (10:25)
[2018-04-30] MEDS: FERROUS SULFATE 325 MG TAB PO SCH (10:25)
[2018-04-30] MEDS: ASPIRIN 325 MG TAB PO SCH (10:26)
[2018-04-30] MEDS: LOSARTAN-HCTZ 50-12.5 MG 1 EACH TAB PO SCH (10:26)
[2018-04-30] MEDS ORDERED: METOPROLOL TARTRATE 25 MG TAB PO SCH (13:30)
--- NOTE | 2018-04-30 13:43 | PN ---
PROGRESS NOTE DATE OF SERVICE: 04/29/2018 PRESENTING COMPLAINT: Difficulty walking and INTERVAL HISTORY: This patient was seen by me yesterday. The patient's symptoms were greatly improved. We are pending a decision from Orthopedics to see if patient can have an MRI because of the hardware in the knees. Otherwise, patient is comfortable, no neuro symptoms. REVIEW OF SYSTEMS: Review of systems done for constitutional, cardiovascular, GI, pulmonary; relevant findings as above. CURRENT MEDICATIONS: Current medications are reviewed that include aspirin and Lipitor. PHYSICAL EXAMINATION: On examination, temperature 97.4, pulse 80, respiratory 18, blood pressure 153/113, pulse ox 96% on room air. GENERAL APPEARANCE: Sitting up, comfortable. EYES: Pupils equal. Conjunctivae normal. HENT: External appearance of nose and ears normal. Oral cavity normal. NECK: JVD not raised. Mass not palpable. RESPIRATORY: Effort normal. Lungs are clear. CARDIOVASCULAR: First and second sounds normal. No edema. ABDOMEN: Soft, nontender. Liver and spleen not palpable. PSYCHIATRY: Alert and oriented x3. Mood and affect normal. NEUROLOGICAL: No focal deficits. INVESTIGATIONS: LDL 131. ASSESSMENT: 1. Possible transient ischemic attack versus stroke pending decision as per MRI. 2. Obesity, body mass index 31.3. 3. Hyperlipidemia, uncontrolled. LDL is 131. 4. Essential hypertension accelerated on presentation. 5. Chronic lymphedema of the right arm, idiopathic. 6. Primary osteoarthritis especially of the hands. PLAN: I did speak to the PA from [facility]. She is going to get back to us about to see that patient can have the MRI. Later when I saw the patient, the patient did tell me that she is okay to have the MRI. Hence, MRI is pending at this point. Also 2D echo is pending so is the EEG. Care was discussed with the patient. MMODL / IJN: [id number] /
[2018-04-30 18:26] VITALS: BP 142/84; PULSE 87; RESP 18; TEMP 97.9
--- NOTE | 2018-04-30 21:43 | EEG ---
ELECTROENCEPHALOGRAM REPORT DATE OF EE04/30/2018. REFERRING PHYSICIAN: Dr. Collins CONSULTING/INTERPRETING PHYSICIAN: Dr. Vincent Haider MD ELECTROENCEPHALOGRAPHIC EXAMINATION REPORT: INDICATION FOR EXAMINATION: This patient is an 88-year-old female, admitted with episode of dizziness and dysphagia. MRI findings indicate acute pontine stroke. AGE: [age]. EEG FINDINGS: A routine 21 channel awake digital EEG recording was accomplished utilizing the 10-20 international system with bipolar and referential montages. The background activity in the most alert resting state consists of a low to medium amplitude, fairly well developed and well sustained 7-8 Hz activity over the posterior head regions. This posterior rhythm attenuates to eye opening. There is a small amount of low amplitude 18-20 Hz beta activity seen maximally over the anterior head regions. Muscle and movement artifact was observed on a few occasions during the tracing. Hyperventilation was not performed. Photic stimulation at flash frequencies of 2-30 Hz produced a good symmetrical occipital driving response. No epileptiform discharges were seen. IMPRESSION: This EEG is within normal limits for the patient's age. The EEG failed to reveal any focal, lateralized, or epileptiform abnormalities. Clinical correlation is recommended. MMODL / IJN: [id number] /
--- NOTE | 2018-04-30 22:52 | P.PN ---
Subjective Progress Note Date: 12/01/17 This patient is a 88-year-old female who was admitted just stay for symptoms of dizziness and dysphagia. The patient presented with new onset of symptoms and was initially seen in the emergency room for possibility of TIA versus stroke. She underwent a computed tomography scan of the brain which failed to reveal any acute changes. She was admitted to Hospital for further evaluation. Yesterday her neurological examination was showing significant improvement with her dysphagia. She is waiting to be seen in consultation by ENT for further evaluation. Given her history of dysphagia and dizziness it was recommended the patient undergo MRI of the brain. Apparently she told the nursing staff today that she would decline the MRI as she is undergone bilateral knee replacements. After checking with MRI this was not a contraindication for her MRI study for today however the patient has declined to have MRI brain done at this time. 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 Patient seems to be doing fairly well today. She denies any difficulty with her swallowing today. She is still awaiting ENT consultation. According to the nursing staff orthopedic surgery has been consulted for evaluation of her knee replacements and compatibility for MRI. We will continue to follow her progress closely during this admission. We have discussed all results with her thus far in detail and she does seem to be doing better today. According to the patient she has been given okay to proceed with MRI of the brain. This is been scheduled for her to be done tomorrow. She will also have her EEG done today and this will be reviewed. Her EEG was completed and we did review the results. EEG is within normal limits for age. She did undergo MRI of the brain today which reveals evidence of a pontine stroke. Patient is recommended to continue close follow-up in the outpatient neurology clinic. She is to continue on one baby aspirin daily for secondary stroke prevention. Patient has not been seen by ENT but should follow up as outpatient. Patient is being considered for discharge home today and should follow-up in the outpatient neurology clinic in 3-4 weeks. Her overall prognosis at this time remains guarded. Objective - Vital Signs Vital signs: Vital Signs Temp 97.8 F 04/30/18 12:00 Pulse 82 04/30/18 12:00 Resp 16 04/30/18 12:00 BP 157/76 04/30/18 12:00 Pulse Ox 97 04/30/18 12:00 Intake & Output 04/29/18 04/30/18 04/30/18 18:59 06:59 18:59 Intake Total 720 480 380 Balance 720 480 380 Weight 77.8 kg Intake: Oral 720 480 380 Other: Voiding Method Toilet Toilet # Voids 1 3 2 - Exam Physical examination: PHYSICAL EXAMINATION: Patient is resting comfortably in bed. VITAL SIGNS: Blood pressure is [142/84]. Heart rate is [87]. Respiration is [18] . Temperature is [97.9]. HEENT: Head is atraumatic, neck is supple, there were no carotid bruits. CHEST: Lungs are clear to auscultation and percussion. CARDIAC: S1, S2 normal rate and rhythm. There is no murmur. ABDOMEN: Soft and nontender. Bowel sounds are present. EXTREMITIES: There is no pedal edema. Peripheral pulses are present. Neurological examination: Patient has a nonfocal neurological examination today. Patient denies any swallowing difficulties at this time and is been up and ambulating without vertigo or dizzy spells. Patient denies any swallowing difficulties today. - Labs CBC & Chem 7: 04/27/18 12:06 04/27/18 12:06 Assessment and Plan (1) Transient brainstem ischemia Status: Acute Code(s): G45.8 - OTH TRANSIENT CEREBRAL ISCHEMIC ATTACKS AND RELATED SYND SNOMED Code(s): 28777736 (2) Dysphagia Status: Acute Code(s): R13.10 - DYSPHAGIA, UNSPECIFIED SNOMED Code(s): 22361850 (3) Dizziness Status: Acute Code(s): R42 - DIZZINESS AND GIDDINESS SNOMED Code(s): 088381237 (4) History of colon cancer Status: Acute Code(s): Z85.038 - PERSONAL HISTORY OF MALIGNANT NEOPLASM OF LARGE INTESTINE SNOMED Code(s): 351890327 Plan: This patient is a 88-year-old female was being evaluated for recent episode of dizziness and dysphagia. She was able to complete MRI of the brain today which was reviewed. MRI reveals evidence of a subacute infarct in the renae. We have recommended the patient begin on one baby aspirin 81 mg daily for secondary stroke prevention. Her blood pressure medications were also adjusted today. She is also been started on Lipitor 20 mg daily. Her recent total cholesterol done in Hospital was 218. She underwent routine EEG today which is reviewed and is normal for age. We are recommending the patient to follow-up in the outpatient neurology clinic in 3-4 weeks. Case was discussed with the patient and her daughter at bedside. All of their questions were answered to the best of my ability. They will continue close follow-up and as mentioned we'll schedule for a follow-up in the outpatient neurology clinic as recommended. Her overall prognosis at this time remains guarded.
--- NOTE | 2018-05-01 10:35 | ECHOF ---
Referral Reason:STROKE-R/O THROMBUS MEASUREMENTS -------- HEIGHT: 157.5 cm WEIGHT: 77.6 kg BP: 151/126 RVIDd: 3.1 cm (< 3.3) IVSd: 1.3 cm (0.6 - 1.1) LVIDd: 4.7 cm (3.9 - 5.3) LVPWd: 1.3 cm (0.6 - 1.1) IVSs: 1.8 cm LVIDs: 2.9 cm LVPWs: 1.8 cm LAESV Index (A-L): 19.21 ml/m Ao Diam: 3.3 cm (2.0 - 3.7) AV Cusp: 1.4 cm (1.5 - 2.6) LA Diam: 3.9 cm (2.7 - 3.8) MV E Ej: 0.84 m/s MV DecT: 636 ms MV A Ej: 1.47 m/s MV E/A Ratio: 0.57 RAP: 5.00 mmHg RVSP: 15.50 mmHg FINDINGS -------- Sinus rhythm. This was a technically adequate study. The left ventricular size is normal. There is mild concentric left ventricular hypertrophy. Overa ll left ventricular systolic function is normal with, an EF between 55 - 60 %. The right ventricle is normal in size and function. Normal LA size by volume 22+/-6 ml/m2. The right atrium is normal in size. There is mild aortic valve sclerosis. Trace to mild aortic regurgitation. There is no evidence of aortic stenosis. The mitral valve leaflets are mildly thickened. Mild mitral regurgitation is present. Trace tricuspid regurgitation present. Right ventricular systolic pressure is normal at < 35 mmHg. There is no evidence of pulmonary hypertension. The pulmonic valve was not well visualized. The aortic root size is normal. Normal inferior vena cava with normal inspiratory collapse consistent with estimated right atrial pre ssure of 5 mmHg. There is no pericardial effusion. CONCLUSIONS -------- 1. Sinus rhythm. 2. This was a technically adequate study. 3. The left ventricular size is normal. 4. There is mild concentric left ventricular hypertrophy. 5. Overall left ventricular systolic function is normal with, an EF between 55 - 60 %. 6. Normal LA size by volume 22+/-6 ml/m2. 7. There is mild aortic valve sclerosis. 8. Trace to mild aortic regurgitation. 9. The mitral valve leaflets are mildly thickened. 10. Mild mitral regurgitation is present. 11. Trace tricuspid regurgitation present. 12. Right ventricular systolic pressure is normal at < 35 mmHg. 13. There is no evidence of pulmonary hypertension. 14. The pulmonic valve was not well visualized. 15. The aortic root size is normal. 16. There is no pericardial effusion. INTERN BRAND: Hammad Sol RDCS
--- NOTE | 2018-05-01 11:32 | DS ---
DISCHARGE SUMMARY FINAL DIAGNOSES: 1. Acute pontine infarct, improved. 2. Gait dysfunction. 3. Obesity. 4. Hyperlipidemia. 5. Hypertension. 6. Chronic lymphedema. 7. Degenerative joint disease. DISCHARGE DISPOSITION: The patient is being discharged in stable condition with guarded prognosis. HISTORY OF PRESENT ILLNESS: This 88-year-old woman with past medical history of multiple medical problems admitted with gait dysfunction. MRA showed small pontine stroke. Neurology saw the patient and cleared the patient for discharge. On exam, vitals are stable. Cardiovascular: S1, S2 muffled. Respiratory: Breath sounds diminished in the bases. Abdomen: Soft. Nervous System: No focal deficit. DISCHARGE ADVICE: 1. Diet is cardiac. 2. Activity limited until followup. 3. Follow up with Dr. Rowe in 2-3 days. 4. Follow up with Neurology as recommended. MEDICATIONS: 1. Ziac 10 mg p.o. daily. 2. Vitamin D3 1000 daily. 3. Iron 320 mg p.o. q.48h hours. 4. Multivitamin 1 p.o. daily. 5. [place]-3 1000 mg b.i.d. 6. Aspirin 325 mg p.o. daily. 7. Lipitor 20 mg q.h.s. 8. Losartan hydrochlorothiazide 50/12.5 mg p.o. b.i.d. 9. Lopressor 25 mg p.o. b.i.d. Closely monitor blood pressure in the outpatient setting and aspirin reduced to baby aspirin in the outpatient setting. Further recommendations to follow. MMODL / GENIEN: [id number] /
== END 2018-04-30 18:58 | disposition home or self-care (01) | DRG 66 ==
LOC: EC 11:22 → 6SEL 15:15
PROVIDERS: ADMIT Hospitalist; ATTEND Hospitalist
DX: I61.3 Nontraumatic intracerebral hemorrhage in brain stem (principal); R32 Unspecified urinary incontinence; I89.0 Lymphedema, not elsewhere classified; I65.21 Occlusion and stenosis of right carotid artery; R13.10 Dysphagia, unspecified; E66.9 Obesity, unspecified; E78.5 Hyperlipidemia, unspecified; R26.9 Unspecified abnormalities of gait and mobility; Z96.653 Presence of artificial knee joint, bilateral; I16.0 Hypertensive urgency; Z96.1 Presence of intraocular lens; M19.042 Primary osteoarthritis, left hand; M19.041 Primary osteoarthritis, right hand; Z68.31 Body mass index [BMI] 31.0-31.9, adult; Z85.038 Personal history of other malignant neoplasm of large intestine; Z98.42 Cataract extraction status, left eye; Z98.41 Cataract extraction status, right eye; Z80.0 Family history of malignant neoplasm of digestive organs; Z90.49 Acquired absence of other specified parts of digestive tract; Z79.899 Other long term (current) drug therapy; Z88.1 Allergy status to other antibiotic agents; Z88.0 Allergy status to penicillin; Z88.2 Allergy status to sulfonamides; Z79.82 Long term (current) use of aspirin; Z92.3 Personal history of irradiation
CPT/HCPCS: 36415; 70450; 70551; 71046; 80053; 80061; 81003; 82550; 82553; 83735; 84484; 85025; 85379; 93005; 93306; 93880; 95819; 96360; 96361; 99291

== ENCOUNTER → 2018-08-06 | Outpatient (CLI) | payer MEDICARE ==
--- NOTE | 2018-08-06 14:48 | MM ---
Reason for exam: follow-up at short interval from prior study. Last mammogram was performed 6 months ago. History: Patient is postmenopausal and has history of colon cancer at age 61. Benign US biopsy breast VAD RT of the right breast, February 05, 2018. Physical Findings: Nurse did not find any significant physical abnormalities on exam. MG 3D Diag Mammo W/Cad RT CC and MLO view(s) were taken of the right breast. Prior study comparison: January 26, 2018, bilateral MG 3d diag mammo w/cad MESSI. January 16, 2012, bilateral digital screening mammo w/CAD. There are scattered fibroglandular densities. There is no discrete abnormality. No significant new findings when compared with previous films. These results were verbally communicated with the patient and result sheet given to the patient on 08/06/18. ASSESSMENT: Benign, BI-RAD 2 RECOMMENDATION: Routine screening mammogram of both breasts in 6 months.
== END | disposition home or self-care (01) ==
LOC: RADMAMWWP 13:59
PROVIDERS: ATTEND Surgery
DX: R92.8 Other abnormal and inconclusive findings on diagnostic imaging of breast (principal)
CPT/HCPCS: 77065; G0279; 77061

== ENCOUNTER → 2018-08-13 | Outpatient (CLI) | payer MEDICARE ==
--- NOTE | 2018-08-13 11:16 | MR ---
EXAMINATION TYPE: MR lumbar spine wo/w con DATE OF EXAM: 08/13/2018 COMPARISON: NONE HISTORY: Back pain CONTRAST: 7.5 mL Gadavist TECHNIQUE: T1 and T2 axial and sagittal, postcontrast T1 sagittal and axial images of the lumbar spi ne are submitted. FINDINGS: There is no abnormal signal seen within the visualized spinal cord or paraspinal soft tissu es. Simple appearing renal cysts are noted bilaterally. Aorta of normal caliber. At L1-2 there is facet arthropathy. No disc herniation or canal stenosis. No foraminal encroachment. At L2-3 there is diffuse circumferential disc bulging with hypertrophy of the facets and ligamentum f lavum. Disc bulging greater laterally to the left. Mild effacement of thecal sac. Mild bilateral fora mike encroachment greater on the left and borderline central stenosis. At L3-4 there is diffuse broad-based disc bulging with facet arthropathy and ligamentum flavum hypert rophy. There is borderline central stenosis and mild bilateral foraminal encroachment. At L4-5 there is a grade 1 anterolisthesis with degenerative disc disease. There is advanced facet ar thropathy and ligamentum flavum with diffuse disc bulging resulting in moderate central stenosis and bilateral mild foraminal encroachment. There is a rounded structure along the upper margin of the fac et joint on the right measuring 5 mm. This does result in some lateral impression upon the thecal sac on the postcontrast images. At L5-S1 there is advanced facet arthropathy. No disc herniation or canal stenosis. Neural foramina a re patent. IMPRESSION: 1. Multilevel mild degenerative disc disease with more advanced facet arthropathy at multiple levels particularly noted at L4-5 and L5-S1. Grade 1 anterolisthesis of L5 on S1. 2. Disc bulging and hypertrophic changes result in multilevel borderline canal stenosis with moderate central stenosis at L4-L5. 3. There is a rounded 5 mm area of abnormal signal adjacent to the right facet joint superiorly at L4 . There is rim enhancement. The area of signal results in lateral effacement of thecal sac at the L4 level. Differential diagnosis would include a synovial cyst. A small extruded disc fragment not exclu ded correlate clinically.
== END ==
LOC: RADMRIMAIN 08:26
PROVIDERS: ATTEND Psychiatry & Neurology Neurology
DX: M48.061 Spinal stenosis, lumbar region without neurogenic claudication (principal); M51.17 Intervertebral disc disorders with radiculopathy, lumbosacral region; M46.97 Unspecified inflammatory spondylopathy, lumbosacral region; Z13.89 Encounter for screening for other disorder
CPT/HCPCS: 82565; 84520; 72158; 36415; A9585

== ENCOUNTER → 2018-11-23 | Outpatient (CLI) | payer MEDICARE ==
[~2018-11-23] MED LIST: DOBUTamine DRIP for NUC MED 500 MG in DEXTROSE/WATER 1 250ML.BAG IV ONE
--- NOTE | 2018-11-23 12:37 | ECHOS ---
STRESS ECHOCARDIOGRAM INDICATIONS: Surgical clearance. BASELINE HEART RATE: 65 BASELINE BLOOD PRESSURE: 110/43 MAXIMUM HEART RATE: 114 MAXIMUM BLOOD PRESSURE: 213/107 85% MPHR: 113 100% MPHR: 133 MAXIMUM STAGE REACHED: 3 TOTAL EXERCISE TIME: 7:30 CLINICAL INFORMATION: Baseline EKG shows sinus rhythm with right bundle branch block. The patient was given intravenous dobutamine over a period of 7.5 minutes as per protocol. Did not have chest pain or diagnostic ST-segment depression; 86% of predicted maximum heart rate was obtained. Baseline echo shows normal left ventricular size and wall motion systolic function. Post dobutamine infusion, there is normal hyperdynamic response of all segments of myocardium noted. CONCLUSION: 1. Inconclusive EKG part of the stress test due to baseline EKG changes. 2. Negative dobutamine echo. MMODL / IJN: [id number] /
== END | disposition home or self-care (01) ==
LOC: RADNMMAIN 09:47
PROVIDERS: ATTEND Pediatrics
DX: R94.31 Abnormal electrocardiogram [ECG] [EKG] (principal)
CPT/HCPCS: 93351; J1250

== ENCOUNTER 2019-10-31 05:07 | Emergency (ER) | payer MEDICARE ==
[2019-10-31 05:14] VITALS: BP 195/78
[2019-10-31] MEDS ORDERED: DIPH,PERTUS(ACELL)TETVAC-LF 0.5 ML VIAL IM ONE (05:43)
[2019-10-31] MEDS ORDERED: TOPICAL SKIN ADHESIVE 1 EACH AMP TOPICAL ONE (05:43)
--- NOTE | 2019-10-31 06:02 | ED ---
Wound/Laceration HPI - General Chief Complaint: Wound/Laceration Stated Complaint: Fall w/laceration Time Seen by Provider: 10/31/19 05:20 Source: patient, family Mode of arrival: ambulatory Limitations: no limitations - History of Present Illness Initial Comments: This patient is an 89-year-old woman who states that she took a tumble over her walker this morning approximately an hour ago. The patient states that in the process of this she sustained a laceration to her right forearm. She also had some small abrasions to her left lower leg. Patient also believes that she had struck her left foot but does not believe there is a serious injury. She was able to ambulate without severe pain. The patient denies any other injury. Onset/Timin -: hour(s) Extremity Location: Right: Forearm Place: home Patient Tetanus UTD: No Context: accidental, fall Associated Symptoms: none - Related Data Home Medications Medication Instructions Recorded Confirmed Cholecalciferol [Vitamin D3 (25 1,000 unit PO DAILY 09/25/17 04/27/18 Mcg = 1000 Iu)] Ferrous Sulfate [Iron (65 MG 325 mg PO Q48H 09/25/17 04/27/18 Elemental)] Multivitamins, Thera [Multivitamin 1 tab PO Q48H 09/25/17 04/27/18 (formulary)] [place]-3 Fatty Acids [[place]-3] 1,000 mg PO DAILY 01/29/18 04/27/18 Cetirizine HCl [Zyrtec] 10 mg PO DAILY 04/27/18 04/27/18 Previous Rx's Medication Instructions Recorded Aspirin 325 mg PO DAILY #30 tab 04/30/18 Atorvastatin Calcium [Lipitor] 20 mg PO HS #30 tab 04/30/18 Losartan-Hctz 50-12.5 mg [Hyzaar 1 each PO BID #60 tab 04/30/18 50-12.5] Metoprolol Tartrate [Lopressor] 25 mg PO BID #60 tab 04/30/18 Allergies Allergy/AdvReac Type Severity Reaction Status Date / Time clarithromycin [From Biaxin] Allergy Rash/Hives Verified 10/31/19 05:14 Penicillins Allergy Unknown Verified 10/31/19 05:14 Sulfa (Sulfonamide Allergy ringing in Verified 10/31/19 05:14 Antibiotics) ears Review of Systems ROS Statement: Those systems with pertinent positive or pertinent negative responses have been documented in the HPI. ROS Other: All systems not noted in ROS Statement are negative. Constitutional: Denies: fever Respiratory: Denies: cough, dyspnea Cardiovascular: Denies: chest pain, palpitations, syncope Gastrointestinal: Denies: abdominal pain, vomiting Musculoskeletal: Denies: back pain Skin: Denies: rash Neurological: Denies: headache, weakness, numbness Hematological/Lymphatic: Denies: easy bleeding Past Medical History Past Medical History: Cancer, Hypertension Additional Past Medical History / Comment(s): anemia, hx colon cancer, lymphedema right arm History of Any Multi-Drug Resistant Organisms: None Reported Past Surgical History: Back Surgery, Bowel Resection, Joint Replacement Additional Past Surgical History / Comment(s): joellen knee replacements, joellen cataract with lens implants Past Anesthesia/Blood Transfusion Reactions: No Reported Reaction Past Psychological History: No Psychological Hx Reported Smoking Status: Never smoker Past Alcohol Use History: None Reported Past Drug Use History: None Reported - Past Family History Mother Family Medical History: Cancer Additional Family Medical History / Comment(s): colon General Exam Limitations: no limitations General appearance: alert, in no apparent distress Extremities exam: Present: normal inspection, full ROM. Absent: tenderness Neurological exam: Present: alert Skin exam: Present: warm, dry, normal color, other (There is an approximately 3 cm laceration to the right forearm.). Absent: rash Course Vital Signs 10/31/19 05:10 Temperature 97.5 F L Pulse Rate 86 Respiratory 20 Rate Blood Pressure 195/78 O2 Sat by Pulse 97 Oximetry Procedures - Laceration Laceration #1 Consent Obtained: verbal consent Indication: laceration Site: upper extremity Description: linear Depth: simple, single layer Type of Sutures: other (Skin glue) Patient Tolerated Procedure: well, no complications Disposition Clinical Impression: Laceration Disposition: HOME SELF-CARE Condition: Good Instructions (If sedation given, give patient instructions): Skin Adhesive Care (ED), Laceration (DC) Is patient prescribed a controlled substance at d/c from ED?: No Referrals: Russ Rowe MD [Primary Care Provider] - 1-2 days
[2019-10-31 06:30] VITALS: PULSE 76; RESP 19; TEMP 97.7
== END 2019-10-31 06:29 | disposition home or self-care (01) ==
LOC: EC 05:07
DX: S51.811A Laceration without foreign body of right forearm, initial encounter (principal); D64.9 Anemia, unspecified; Z88.0 Allergy status to penicillin; Z88.1 Allergy status to other antibiotic agents; Z88.2 Allergy status to sulfonamides; Z79.899 Other long term (current) drug therapy; Z85.038 Personal history of other malignant neoplasm of large intestine; Z90.49 Acquired absence of other specified parts of digestive tract; Z23 Encounter for immunization; W18.09XA Striking against other object with subsequent fall, initial encounter; Y92.009 Unspecified place in unspecified non-institutional (private) residence as the place of occurrence of the external cause
CPT/HCPCS: 12002; 90471; 90715; 99282